=== PATIENT | female | born 1955 | race African-American/Black ===

== ENCOUNTER 2020-03-13 14:55 | Emergency (ER) | payer MEDICARE, MEDICAID ==
[~2020-03-13] VITALS: Ht 152.4 cm; Wt 104.3 kg
[~2020-03-13 14:55] MED LIST: IBUPROFEN600 MG ORAL
--- NOTE | 2020-03-13 15:04 | NUR ---
ED Nurse Note: Pt ambulated to ed c/o slip and fall on friday while walking and sliping on dirt. pt left ankle swelling. pt unable to apply pressure on ankle. pt skin intact. Pt denies use of blood thinners no head trauma.
[2020-03-13 15:06] VITALS: BP 174/84
--- NOTE | 2020-03-13 15:07 | NUR ---
ED Nurse Note: Pt systolic BP in 170's but pt states she is supposed to take her HTN medication at night.
--- NOTE | 2020-03-13 15:26 | NUR ---
ED Nurse Note: xray taken
--- NOTE | 2020-03-13 15:51 | Diagnostic Imaging Report ---
EXAMINATIONS: 1. 3 VIEWS OF THE LEFT ANKLE. 2. 3 VIEWS OF THE LEFT FOOT Indication: Foot and ankle pain status post trauma Technique: 1. 3 views of the left ankle. 2. 3 views of the left foot. Comparison: None Findings: Bone mineralization within normal limits. No acute fracture is identified. Ankle mortise is intact on these nonstress views. Small well-corticated ossific density projects adjacent to the talonavicular joint most likely representing a accessory ossicle. There is a moderate-sized plantar calcaneal enthesophyte. No ankle joint effusion. Lisfranc alignment of the foot is maintained. There is soft tissue swelling. No radiopaque foreign body. IMPRESSION: Soft tissue swelling. No acute fracture or dislocation.
[2020-03-13] MEDS ORDERED: ROBAXIN-500MG ORAL (15:56)
[2020-03-13] MEDS ORDERED: IBU800 MG PO (15:56)
--- NOTE | 2020-03-13 15:56 | Emergency Room Report ---
History of Present Illness General Chief Complaint: Multiple Trauma/Fall Source: Patient Present Illness HPI 64-year-old female with history of diabetes and hypertension currently medication here complaining of left ankle and foot pain x2 days after twisting it. Has not taken medication for symptom relief. Reports that she does not want any medication has not even ibuprofen as it makes her sleepy. Patient is very demanding and is upset that why she wants to be seen on a chair even it was explained to her due to lack of room availability it may take longer for patient to be roomed. Patient is neurovascularly intact. Denies any tingling numbness. Does not allow me to do thorough physical exam of the left ankle and foot. Denies any calf tenderness. Has not taken medication for symptom relief. Denies all other injuries. Allergies: Coded Allergies: No Known Allergies (Unverified , 03/13/20) COVID-19 Screening Contact w/high risk pt: No Experienced COVID-19 symptoms?: No COVID-19 Testing performed [employer] PROSPECTING: No Patient History Past Medical History: see triage record Past Surgical History: none Pertinent Family History: none Last Menstrual Period: n/a Now: No Immunizations: UTD Reviewed Nursing Documentation: PMH: Agreed; PSxH: Agreed Nursing Documentation-PMH Hx Hypertension: Yes Hx Diabetes: Yes Review of Systems All Other Systems: negative except mentioned in HPI Physical Exam Vital Signs Date Time Temp Pulse Resp B/P (MAP) Pulse Ox O2 Delivery O2 Flow Rate FiO2 03/13/20 14:58 97.9 92 18 174/84 (114) 95 Room Air Sp02 EP Interpretation: reviewed, normal General Appearance: no apparent distress, alert, GCS 15, non-toxic Head: normocephalic, atraumatic Eyes: bilateral eye normal inspection, bilateral eye PERRL ENT: hearing grossly normal, normal pharynx, no angioedema, normal voice Neck: full range of motion, supple/symm/no masses Respiratory: chest non-tender, lungs clear, normal breath sounds, no rhonchi, no wheezing, speaking full sentences Cardiovascular #1: regular rate, rhythm, no edema Cardiovascular #2: 2+ dorsalis pedis (R), 2+ dorsalis pedis (L) Gastrointestinal: normal bowel sounds, non tender, soft, non-distended, no guarding, no rebound Genitourinary: no CVA tenderness Musculoskeletal: back normal, no calf tenderness, swelling - Left ankle, other - Patient is neurovascularly intact Neurologic: alert, motor strength/tone normal, oriented x3, sensory intact, responsive, speech normal Psychiatric: judgement/insight normal, memory normal, mood/affect normal, no suicidal/homicidal ideation Skin: no rash Lymphatic: no adenopathy Procedures Splinting Splinting : Consent: Verbal Location: Left ankle Splint: poserior short Pre-Proc Neuro Vasc Exam: normal Post-Proc Neuro Vasc Exam: normal Patient Tolerated: Well Complications: None Progress Crutches were provided Medical Decision Making PA Attestation ALL Diagnosis and treatment plan reviewed and discussed with my supervising physician Dr. Ochoa Diagnostic Impression: Primary Impression: Ankle sprain Additional Impression: Calcaneal spur ER Course 64-year-old female with history of diabetes and hypertension currently medication here complaining of left ankle and foot pain x2 days after twisting it. Has not taken medication for symptom relief. Reports that she does not want any medication has not even ibuprofen as it makes her sleepy. Patient is very demanding and is upset that why she wants to be seen on a chair even it was explained to her due to lack of room availability it may take longer for patient to be roomed. Patient is neurovascularly intact. Denies any tingling numbness. Does not allow me to do thorough physical exam of the left ankle and foot. Denies any calf tenderness. Has not taken medication for symptom relief. Denies all other injuries. Ddx considered but are not limited to: ankle sprain, ankle strain, ankle fracture, ankle contusion Vital signs: are WNL, pt. is afebrile H&PE are most consistent with: left ankle sprain, calcaneal spur ORDERS: ankle x-ray, foot x-ray, Robaxin, ibuprofen ED INTERVENTIONS: Symptom relief splint applied with crutches DISCHARGE: At this time pt. is stable for d/c to home. Will provide printed patient care instructions, and any necessary prescriptions. Care plan and follow up instructions have been discussed with the patient prior to discharge. Patient take medication as directed, follow-up with radiologic electronic specialist, if worsening symptoms return to the emergency room Other X-Ray Diagnostic Results Other X-Ray Diagnostic Results #1: X-Ray ordered: Left ankle # of Views/Limited Vs Complete: 3 View Indication: Pain EP Interpretation: Yes PA Xray: Interpretation reviewed, by supervising MD, and agrees with findings. Interpretation: no dislocation, no fractures Impression: No acute disease Electronically Signed by: Shantal Steele PA-C Other X-Ray Diagnostic Results #2: X-Ray ordered: Left foot # of Views/Limited Vs Complete: 3 View Indication: Pain EP Interpretation: Yes GIOVANNI Xray: Interpretation reviewed, by supervising MD, and agrees with findings. Interpretation: no dislocation, no soft tissue swelling, no fractures Impression: No acute disease Electronically Signed by: Shantal Steele PA-C Last Vital Signs Date Time Temp Pulse Resp B/P (MAP) Pulse Ox O2 Delivery O2 Flow Rate FiO2 03/13/20 15:06 97.9 78 18 174/84 95 Room Air Disposition: HOME, SELF-CARE Condition: Stable Scripts Ibuprofen (Ibu) 800 Mg Tablet 800 MG PO TID, #30 TAB Prov: Shantal Caballero 03/13/20 Methocarbamol* (ROBAXIN-500*) 500 Mg Tablet 500 MG ORAL TID PRN for For Pain, #15 TAB 0 Refills Prov: Shantal Caballero 03/13/20 Patient Instructions: Ankle Sprain, [id number], Heel Spur Additional Instructions: Take medication as directed, follow-up with your primary care provider, follow- up with radiologic electronic specialist, if worsening symptoms return to the emergency room Shantal Caballero Mar 13, 2020 15:56
[2020-03-13 16:01] VITALS: BP 169/89
--- NOTE | 2020-03-13 16:01 | NUR ---
ER DISCHARGE NOTE: Patient is cleared to be discharged per ERMD, pt is aox4, on room air, with stable vital signs. pt was given dc and prescription instructions, pt was able to verbalize understanding, pt id band removed, splint placed by emt. pt is able to ambulate with steady gait. pt took all belongings.
== END 2020-03-13 16:01 | disposition home or self-care (01) ==
LOC: EMR 15:27
DX: S93.402A Sprain of unspecified ligament of left ankle, initial encounter (principal); M77.32 Calcaneal spur, left foot; X50.1XXA Overexertion from prolonged static or awkward postures, initial encounter; Y92.9 Unspecified place or not applicable; E11.9 Type 2 diabetes mellitus without complications; I10 Essential (primary) hypertension
CPT/HCPCS: 29515; 99283